=== PATIENT | female | born 1960 | race Caucasian/White ===

== ENCOUNTER 2021-07-01 00:04 | Day surgery (SDC) | payer OTHER, SELFPAY ==
[2021-06-30 11:54] VITALS: BMI 28.6
--- NOTE | 2021-06-30 12:07 | PC.NURSE ---
Addendum entered by Sujatha Gutierrez RN 06/30/21 15:42: PT CALLED BACK AND STATES THAT SHE IS NO LONGER TAKING SERTRALINE. Original Note: Report to the Outpatient Waiting Room, entrance under the green pavilion located off [facility], at time 0700 on date 07/01/21. OR Time: 0900. - You and your visitor will be asked a series of questions to screen for COVID 19 for your protection. - A mask is required within the hospital. One visitor will be allowed to accompany the patient into the hospital. Patients visitor will be instructed to remain with patient at all times or leave the building. We will allow the visitor to come back to the postoperative area when patient is ready. Preoperative COVID Testing Requirements: No COVID Test needed if: (proof is required; if not received patient will have Rapid Test prior to entry) - Patient has received COVID Vaccine at least 14 days prior to procedure date or - Patient has positive COVID test result within last 90 days of surgery date. COVID Test needed if above criteria is not met Patients may have clear liquids (water, carbonated beverages, clear teas, apple juice) until 3 hours prior to surgery with a maximum of 20 ounces. - No food from midnight until time of surgery Take the following medications with a SIP of water the morning of surgery: SERTRALINE, LEVOTHYROXINE Medications to discontinue per physician: VITAMINS/SUPPLEMENTS Date to take last dose: NONE UNTIL AFTER SURGERY Please no make-up, nail irish, hairspray, perfume, deodorant, or body powder the day of surgery. No jewelry (including any body piercings) or valuables the day of surgery, leave them at home. Please take a shower or bath the night before, or the morning of, surgery with an antibacterial soap. Wear comfortable, loose fitting clothing. - Jewelry must be removed prior to entering the operating room. Rings and piercings that are not removed may be cut off. - The hospital will not accept responsibility for valuables. - Please leave all valuables, including medications, at home the day of surgery. If you are going home after surgery, a licensed hazmat cdl driver must drive you home. - NO public transportation without another adult. - We recommend that an adult stay with you for 24 hours following discharge. - We also recommend that you do not drive, make important decision, drink alcoholic beverages, or take any drugs that were not prescribed by your health care provider for at least 24 hours after your discharge time. Follow any additional instructions given to you from your surgeon. Telephone instructions given to DARVIN RAJAN and asked if any additional questions and then verbalized understanding. Patient advised to call surgeon office or pre surgery nurse liaison [phone] if any additional questions.
[2021-07-01] VITALS (11 sets, daily range): BP systolic 94–138; BP diastolic 34–75; PULSE 68–107; RESP 18–24; TEMP 36–36.3; O2SAT 92–100
--- NOTE | 2021-07-01 07:27 | WPDHPUPDATE1 ---
History and Physical Update Update Date/Time: 07/01/21 07:27 History and Physical has been reviewed, including an updated exam of the patient. There are NO changes in the patient's condition. Risks, benefits, and alternatives have been discussed and questions answered. Patient agrees to proceed with procedure.
--- NOTE | 2021-07-01 07:27 | PM.IMHP ---
H&P: HPI History of Present Illness Date/Time: 07/01/21 07:27 Chief Complaint: bad teeth PMFSH Social History Social History Smoking packs per day: 1 Smoking cigarettes per day: 20.0 Years smoked: 45 Smoking pack-years: 45.00 Smoking status: Current every day smoker Tobacco type: cigarettes Alcohol intake: never Substance use: never Substance use type: does not use Living arrangements: with family Additional living arrangements comments: DAUGHTER AND FAMILY Spiritual care concerns: No Meds Home Medications and Allergies Home Medications Medication Instructions Recorded Confirmed Type atorvastatin 40 mg PO DAILY 06/30/21 06/30/21 History cholecalciferol (vitamin D3) 125 mcg PO DAILY 06/30/21 06/30/21 History [Vitamin D3] cranberry extract 15,000 mg PO DAILY 06/30/21 06/30/21 History duloxetine 30 mg PO HS 06/30/21 06/30/21 History estradiol 1 appful VAGINAL DAILY 06/30/21 06/30/21 History folic acid 0.4 mg PO DAILY 06/30/21 06/30/21 History hydrochlorothiazide 25 mg PO DAILY 06/30/21 06/30/21 History levothyroxine 50 mcg PO DAILY 06/30/21 06/30/21 History mirtazapine 30 mg PO HS 06/30/21 06/30/21 History ondansetron HCl 4 mg PO BID PRN 06/30/21 06/30/21 History pantoprazole 40 mg PO QAM 06/30/21 06/30/21 History potassium chloride 20 meq PO BID 06/30/21 06/30/21 History primidone 100 mg PO HS 06/30/21 06/30/21 History pyridoxine (vitamin B6) 100 mg PO DAILY 06/30/21 06/30/21 History tamsulosin 0.4 mg PO HS 06/30/21 06/30/21 History Allergies Allergy/AdvReac Type Severity Reaction Status Date / Time iodine AdvReac Intermediate LOCALIZED Verified 07/01/21 07:24 SWELLING Sulfa (Sulfonamide AdvReac Intermediate REALLY Verified 07/01/21 07:24 Antibiotics) BAD TASTE IN MOUTH Assessment and Plan Assessment and plan (1) Non-restorable tooth: Code(s): K08.89 - Other specified disorders of teeth and supporting structures Status: Acute Assessment and Plan: nonrestorable dentition and mandibular ricci
[2021-07-01] MEDS: LACTATED RINGERS 1,000 ML 30 ML IV CONT ×2 (07:50→09:55)
--- NOTE | 2021-07-01 08:15 | WPDANESEPPF ---
Anes - Initial Pre Proc Eval Procedure: Operation Date: 07/01/21 09:00 Proposed Procedures p Extraction of all Remaining Teeth, Removal Bilateral Mandibular Seda - Armand Valdovinos DMD Date/Time: 07/01/21 08:15 Surgeon: Armand Valdovinos DMD Pre Op Diagnosis: Dental Caries 2-15,18,21,22,27,28,29,31 Patient Data Age: 60 Gender: F Height: 1.75 m Weight: 88 kg Allergies Allergy/AdvReac Type Severity Reaction Status Date / Time iodine AdvReac Intermediate LOCALIZED Verified 07/01/21 07:24 SWELLING Sulfa (Sulfonamide AdvReac Intermediate REALLY Verified 07/01/21 07:24 Antibiotics) BAD TASTE IN MOUTH SEAFOOD Allergy Severe DIFFICULTY Uncoded 07/01/21 07:42 BREATHING/EYE SWELLING Home Medications Medication Instructions Recorded Confirmed Type atorvastatin 40 mg PO DAILY 06/30/21 07/01/21 History cholecalciferol (vitamin D3) 125 mcg PO DAILY 06/30/21 07/01/21 History [Vitamin D3] cranberry extract 15,000 mg PO DAILY 06/30/21 07/01/21 History duloxetine 30 mg PO HS 06/30/21 07/01/21 History estradiol 1 appful VAGINAL DAILY 06/30/21 07/01/21 History folic acid 0.4 mg PO DAILY 06/30/21 07/01/21 History hydrochlorothiazide 25 mg PO DAILY 06/30/21 07/01/21 History levothyroxine 50 mcg PO DAILY 06/30/21 07/01/21 History mirtazapine 30 mg PO HS 06/30/21 07/01/21 History ondansetron HCl 4 mg PO BID PRN 06/30/21 06/30/21 History pantoprazole 40 mg PO QAM 06/30/21 07/01/21 History potassium chloride 20 meq PO BID 06/30/21 07/01/21 History primidone 100 mg PO HS 06/30/21 07/01/21 History pyridoxine (vitamin B6) 100 mg PO DAILY 06/30/21 07/01/21 History tamsulosin 0.4 mg PO HS 06/30/21 07/01/21 History Patient hx anesthesia problems: none Family hx anesthesia problems: none Results Review: All pre-operative results and documents have been reviewed as part of the pre-operative evaluation. [facility] Past Medical History Medical History Chronic back pain COPD (chronic obstructive pulmonary disease) HTN (hypertension) Hyperlipidemia Smoker Surgical History Surgical History (Updated 07/01/21 @ 08:16 by Castillo Haskins MD) H/O lumbosacral spine surgery H/O: hysterectomy Social History Social History Smoking packs per day: 1 Smoking cigarettes per day: 20.0 Years smoked: 45 Smoking pack-years: 45.00 Smoking status: Current every day smoker Tobacco type: cigarettes Alcohol intake: never Substance use: never Substance use type: does not use Living arrangements: with family Additional living arrangements comments: DAUGHTER AND FAMILY Spiritual care concerns: No Anes - Eval Final PreProcedure Day of Procedure 07/01/21 08:15 Patient weight: overweight Heart: regular rate and rhythm Lungs: clear to auscultation Airway: Mallampati scale class II Neurological: alert and oriented Last oral intake: >/= 8 hours ASA classification: III Emergent: no Anesthetic plan: proceed Anesthesia type and monitoring: general ETT and standard monitoring Results Review: All pre-operative results and documents have been reviewed as part of the pre-operative evaluation. Informed Consent: The patient's anesthetic plan and its attendant risks and benefits were discussed with the patient/family/POA. Questions were solicited and answers provided to the satisfaction of the patient/family/POA.
[2021-07-01] MEDS: LIDOCAINE 2%-EPI (FOR DENTAL BLOCK) 1.7 ML CARTRIDGE INFILTRATE (08:54)
[2021-07-01] MEDS: OXYMETAZOLINE HCL 0.05% NAS 15 ML BTL (*BKC) 1 SPRAY NASAL (08:56)
--- NOTE | 2021-07-01 10:00 | PM.OP ---
Procedure Note - Brief Procedure Note - Brief Date of procedure: 07/01/21 Pre-op diagnosis: Dental Caries 2-15,18,21,22,27,28,29,31 Surgeon: Armand Valdovinos DMD Preoperative diagnosis nonrestorable dentition and mandibular ricci bilaterally. Postop diagnosis same. Procedure was the removal of all remaining teeth and removal of bilateral mandibular ricci. The teeth were numbers 2 through 15 18,21,22,20,27,20,29, 31. Complications none estimated blood loss 30cc anesthesia general anesthesia and 8cc of 2% lidocaine with 1 [id number] epinephrine. Patient was encountered the operating room in the care of the Anesthesia Service who induced general anesthetic. Patient was draped in the usual manner for intraoral surgical procedure. Oral cavity was suctioned free of debris and throat pack placed. Local anesthetic administered. A 15 blade was used to make a incision along the necks of the teeth in the maxilla and a full-thickness flap was elevated the buckle. All teeth were removed using elevator forceps technique without complication. Second curetted free of debris alveoloplasty was completed using a rongeur the wound was thoroughly irrigated and then closed using 4-0 chromic gut suture in interrupted and continuous fashion. Attention was turned to the mandible were an incision was made on the buckle of the mandibular teeth and the edentulous ridges and a full-thickness flap was elevated to the buccal and to the lingual. All teeth removed using forceps technique. The ricci removed using the drill. Alveoloplasty was completed using a rongeur. The wound was thoroughly irrigated and closed using 4-0 chromic gut suture in continuous fashion. The oral cavity was rinsed and suctioned free of debris. Throat pack removed. Dentures were placed. Gauze packs placed. Care the patient was returned to the anesthesia service directed patient transferred to recovery in stable condition.
[2021-07-01] MEDS: fentaNYL CITRATE INJ (*CRX) 100 MCG/2 ML VIAL 25 MCG IV PUSH ×6 (10:30→12:07)
--- NOTE | 2021-07-01 11:18 | SUR.PHASEII ---
RN called Dr. Valdovinos's office and gave them the pharmacy information. They will call the prescriptions in to the pharmacy.
[2021-07-01] MEDS: oxyCODONE HCL (*CRX) 5 MG TAB IR PO (12:30)
== END 2021-07-01 12:55 | disposition home or self-care (01) ==
PROVIDERS: Visit Provider Dentist
PROC: (CPT 21031; principal; 2021-07-01 09:00)
DX: K02.9 Dental caries, unspecified (principal); K08.89 Other specified disorders of teeth and supporting structures; I10 Essential (primary) hypertension; J44.9 Chronic obstructive pulmonary disease, unspecified; E78.5 Hyperlipidemia, unspecified; F17.210 Nicotine dependence, cigarettes, uncomplicated
CPT/HCPCS: D7240 ×22; A9270; J0330; J1100; J2250; J2370; J2405; J2704; J3010; J7120